=== PATIENT | male | born 1975 | race Caucasian/White ===

== ENCOUNTER 2016-11-03 17:03 | Emergency (ER) | payer SELFPAY ==
--- NOTE | 2016-11-03 17:49 | ER Document Report ---
ED Substance Abuse / Acc. OD - General Chief Complaint: Alcohol Withdrawl Stated Complaint: MEDICAL CLEARENCE Time Seen by Provider: 11/03/16 17:28 Mode of Arrival: Ambulatory Information source: Patient Notes: This is a 41-year-old man brought into the emergency room by [facility]. Patient has a history of epilepsy since age 8. He also has a history of alcohol abuse and has been here multiple times in the emergency room under a different name. He is brought in for alcohol withdrawal. The patient apparently has a bed available on Saturday at the [facility] in [place]. They have requested that he is restarted on his Keppra for 2 days prior to transfer over to the [facility]. The patient states he did have a seizure yesterday. TRAVEL OUTSIDE OF THE [place] IN LAST 30 DAYS: No - HPI Patient complains to provider of: Alcohol abuse Onset: Just prior to arrival Onset/Duration: Gradual Quality of pain: No pain Severity: None Pain Level: Denies Situational problems related to: No: Daughter, Legal problems, Lost job, Parent , Recent , Recent divorce, School, Sexual orientation, Significant other, Son, Spouse, Work, Other Associated Symptoms: None Similar symptoms previously: Yes Recently seen / treated by doctor: Yes - Related Data Allergies/Adverse Reactions: No Known Allergies Allergy (Verified 11/03/16 17:06) Past Medical History - General Information source: Patient - Social History Smoking Status: Current Every Day Smoker Cigarette use (# per day): No Chew tobacco use (# tins/day): No Frequency of alcohol use: Heavy Drug Abuse: None Lives with: Alone Family History: Reviewed & Not Pertinent Patient has suicidal ideation: No Patient has homicidal ideation: No - Past Medical History Cardiac Medical History: Reports: None Pulmonary Medical History: Reports: None EENT Medical History: Reports: None Neurological Medical History: Reports: Hx Seizures Endocrine Medical History: Reports: None Renal/ Medical History: Reports: None. Denies: Hx Peritoneal Dialysis Malignancy Medical History: Reports None GI Medical History: Reports: None Musculoskeltal Medical History: Reports None Skin Medical History: Reports None Psychiatric Medical History: Reports: Hx Depression, Other - Alcohol abuse Traumatic Medical History: Reports: None Infectious Medical History: Reports: None Surgical Hx: Other - Noncontributory - Immunizations Hx Diphtheria, Pertussis, Tetanus Vaccination: Yes Review of Systems - Review of Systems Constitutional: denies: Chills, Fever EENT: No symptoms reported Cardiovascular: No symptoms reported Respiratory: No symptoms reported Gastrointestinal: No symptoms reported Genitourinary: No symptoms reported Male Genitourinary: No symptoms reported Musculoskeletal: No symptoms reported Skin: No symptoms reported Hematologic/Lymphatic: No symptoms reported Neurological/Psychological: See HPI Physical Exam - Vital signs Vitals: Temp Pulse Resp BP Pulse Ox 98.1 F 109 H 16 153/98 H 94 11/03/16 17:06 11/03/16 17:06 11/03/16 17:06 11/03/16 17:06 11/03/16 17:06 Notes: GENERAL: 41-year-old man, alert oriented 3, alcohol on breath. He appears intoxicated. HEAD: Atraumatic, normocephalic. EYES: Pupils equal round and reactive to light, extraocular movements intact, sclera anicteric, conjunctiva are normal. ENT: TMs normal, nares patent, oropharynx clear without exudates. Moist mucous membranes. NECK: Normal range of motion, supple without lymphadenopathy or JVD. LUNGS: Breath sounds clear to auscultation bilaterally and equal. No wheezes rales or rhonchi. HEART: Regular rate and rhythm without murmurs, rubs or gallops. ABDOMEN: Soft, normoactive bowel sounds. No tenderness to palpation. No guarding, no rebound. No masses appreciated. EXTREMITIES: Normal range of motion, no pitting or edema. No clubbing or cyanosis. NEUROLOGICAL: Cranial nerves II through XII grossly intact. Normal speech, moving all extremities. PSYCH: Normal mood, normal affect. SKIN: Warm, Dry, normal turgor, no rashes or lesions noted. Course - Re-evaluation Re-evalutation: 11/03/16 20:00 Note: I had a long conversation with the [facility] personnel who accompanied the patient to the ER. I had a long conversation with the patient. The plan was to transfer the patient to [facility] for inpatient alcohol detox/dependence treatment. The [facility] was mandating that the patient be on Keppra for 2 days before they take him on Saturday. So in essence, they were asking us to hold him in the ER for 2 days until Saturday morning. After in-depth discussions above as well as discussions with the psychiatric assistant, we have agreed to watch the patient until Saturday. The patient was loaded with IV Keppra and he was given IV thiamine and folate. The patient was given Ativan for any type of withdrawal symptoms. His alcohol level is usually extremely high. The patient normally comes into the hospital with a very high alcohol level. And his tolerance is very high. The patient started requesting for his bag at 8 PM. We allowed him to get his bed because he is here voluntarily but researched it beforehand for any contraband. We did find a large bottle of beer and explained to him that we cannot allow him to have the beer in the room while he stays here. At that point, the patient is requesting to leave. He is speaking clearly and he appears to be mentating appropriately and he appears sober at this time. It is my clinical impression that he is sober at his current alcohol level. I do not believe his alcohol level was ever at 0 and he goes into acute withdrawals when it does go to 0. In any event, he is mentating appropriately and refusing to stay. My only other option, is to physically and chemically restrain him which I do not feel is necessary at this time. 11/03/16 20:14 I have spoken to Makayla from [facility] about the events above and she is willing to talk to the patient. If he is willing to stay, the patient will be allowed to stay voluntarily so that he can get his Keppra and Ativan for withdrawal until the hardware is ready to take him on Saturday. He is here voluntarily. I have explained to Makayla that if he voluntarily wishes to leave, he will be allowed to. - Vital Signs Vital signs: Temp Pulse Resp BP Pulse Ox 98.1 F 109 H 22 H 139/83 H 93 11/03/16 17:06 11/03/16 17:06 11/03/16 19:01 11/03/16 19:01 11/03/16 19:01 - Laboratory Result Diagrams: 11/03/16 18:30 11/03/16 18:30 Laboratory results interpreted by me: 11/03/16 11/03/16 11/03/16 18:30 18:30 18:55 WBC 3.6 L RDW 14.4 H Plt Count 126 L Seg Neutrophils % 38.0 L Monocytes % 18.5 H Absolute Neutrophils 1.4 L BUN 4 L AST 227 H ALT 158 H Total Protein 8.8 H Urine Blood SMALL H Salicylates < 1.0 L Acetaminophen < 10 L Serum Alcohol 351 H* Discharge - Discharge Clinical Impression: Alcohol abuse, Seizure disorder Condition: Stable Disposition: HOME, SELF-CARE Additional Instructions: Your prescription and start taking the Keppra tomorrow. He was given a loading dose of Keppra while you are in the ER this evening. Follow-up with [facility]. Prescriptions: Levetiracetam [Keppra 500 mg Tablet] 500 mg PO Q12 #60 tablet
[2016-11-03] MEDS ORDERED: LEVETIRACETAM 1000 MG/NACL-ISO 100 ML IV ONE (17:55)
[2016-11-03] MEDS ORDERED: THIAMINE HCL 100 MG in NORMAL SALINE 50 ML IV ONE (17:55)
[2016-11-03] MEDS ORDERED: FOLIC ACID 1 MG TABLET PO ONE (17:56)
--- NOTE | 2016-11-03 18:05 | ER Document Report ---
ED Psych Disorder / Suicide - General Mode of Arrival: Ambulatory TRAVEL OUTSIDE OF THE U.S. IN LAST 30 DAYS: No <FRANKY DEY - Last Filed: 11/03/16 17:54> <BLANCA BOWERS - Last Filed: 11/04/16 15:31> - General Chief Complaint: Alcohol Withdrawl Stated Complaint: MEDICAL CLEARENCE Time Seen by Provider: 11/03/16 17:28 - HPI Notes: pt ambulatory to er with need for medical clearance for alcohol withdrawal. pt seen here recently . pt with seizures from [place] with in the past. pt needs to have keppra started and if we are able to keep him until saturday he will possibly have a bed available at the [facility]. 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 Patient has been seen multiple times this week attempting to get medical clearance for [facility]. Patient had previously been using his mother's maiden name, and the Keppra prescription provided yesterday by attending physician is in the incorrect name. Patient has been trying to get help and has been active in the process. Patient call multiple times today attempting to get all the information [facility] needed for placement (he was medically cleared more than 24 hrs previous). Patient arrives to [facility] ED with W[facility] over 300 every visit. If patient is released, the process of repeated ED visits (sometimes 2 in a day) will continue. Patient is starting to verbalize depression and passive SI at the difficulties. There is concern the patient will act on these thoughts if he continues to make the same circular progress of clearance and then no placement only to get intoxicated again. [facility] has confirmed that Dr. Escudero will accept the patient after he has had Keppra for 2 days and [facility] mobile rattan worker confirms the transportation will be provided for patient to [facility]. Patient verbalized concern for cost of prescription; Keppra is on the $ 10 list for a 60 days prescription at [facility], additionally patient can use coupons available online such as by [employer]. (FRANKY DEY) Met with Patient who reported he continues to feel shaky and like he is withdrawal, though when I initially entered the room, Patient was not shaking or exhibiting any signs of alcohol withdrawal. He was lying comfortably in bed with his eyes closed and easily awakened to his name being closed. When asked how he was doing, he began shaking, almost tremulously. I asked him if he still was wanting to go to the [facility] and he indicated he did, but reportedly he lost his bed because he needed to be on Keppra for two days before admission. Hand off notes indicated Dr. Addison confirmed the Patient had a bed on Saturday should he receive 2 days worth of treatment. Patient is otherwise considered psychiatrically clear for discharge. (BLANCA BOWERS) - Related Data Allergies/Adverse Reactions: No Known Allergies Allergy (Verified 11/03/16 17:06) Past Medical History - General Information source: Patient - Social History Smoking Status: Current Every Day Smoker Chew tobacco use (# tins/day): No Frequency of alcohol use: Heavy Drug Abuse: None Family History: Reviewed & Not Pertinent Patient has suicidal ideation: No Patient has homicidal ideation: No Neurological Medical History: Reports: Hx Seizures Renal/ Medical History: Denies: Hx Peritoneal Dialysis Psychiatric Medical History: Reports: Hx Depression - Immunizations Hx Diphtheria, Pertussis, Tetanus Vaccination: Yes <FRANKY DEY - Last Filed: 11/03/16 17:54> Course - Laboratory Result Diagrams: 11/03/16 18:30 11/03/16 18:30 <BLANCA BOWERS - Last Filed: 11/04/16 15:31> - Vital Signs Vital signs: Temp Pulse Resp BP Pulse Ox 98.6 F 85 18 141/94 H 95 11/04/16 09:56 11/04/16 09:56 11/04/16 09:56 11/04/16 09:56 11/04/16 09:56 - Laboratory Laboratory results interpreted by me: 11/03/16 11/03/16 11/03/16 18:30 18:30 18:55 WBC 3.6 L RDW 14.4 H Plt Count 126 L Seg Neutrophils % 38.0 L Monocytes % 18.5 H Absolute Neutrophils 1.4 L BUN 4 L AST 227 H ALT 158 H Total Protein 8.8 H Urine Blood SMALL H Salicylates < 1.0 L Acetaminophen < 10 L Serum Alcohol 351 H* Discharge <FRANKY DEY - Last Filed: 11/03/16 17:54> <BLANCA BOWERS - Last Filed: 11/04/16 15:31> - Discharge Clinical Impression: Alcohol abuse, Seizure disorder Condition: Stable Disposition: OTHER Additional Instructions: Your prescription and start taking the Keppra tomorrow. He was given a loading dose of Keppra while you are in the ER this evening. Follow-up with [facility]. Prescriptions: Levetiracetam [Keppra 500 mg Tablet] 500 mg PO Q12 #60 tablet
[2016-11-03] MEDS ORDERED: THIAMINE HCL INJ 200 MG/2 ML VIAL ONE (18:38)
[2016-11-03 18:42] LABS: HEMATOCRIT 49.6 % (37.9-51.0); HEMOGLOBIN 16.5 g/dL (13.5-17.0); HGB HCT DIFFERENCE -0.1; RED BLOOD COUNT 5.36 10^6/uL (4.35-5.55); WHITE BLOOD COUNT 3.6 10^3/uL (4.0-10.5)
[2016-11-03 18:43] LABS: ABSOLUTE BASOPHILS # (AUTO) 0.1 10^3/uL (0.0-0.2); ABSOLUTE EOSINOPHILS # (AUTO) 0.1 10^3/uL (0.0-0.6); ABSOLUTE LYMPHOCYTES (AUTO) 1.4 10^3/uL (0.5-4.7); ABSOLUTE MONOCYTES (AUTO) 0.7 10^3/uL (0.1-1.4); ABSOLUTE NEUT (AUTO) 1.4 10^3/uL (1.7-8.2); BASOPHILS % (AUTO) 1.6 % (0-2); EOSINOPHILS % (AUTO) 3.7 % (0-6); LYMPHOCYTES % (AUTO) 38.2 % (13-45); MEAN CORPUSCULAR HEMOGLOBIN 30.9 pg (27.0-33.4); MEAN CORPUSCULAR HGB CONC 33.4 g/dL (32.0-36.0); MEAN CORPUSCULAR VOLUME 93 fl (80-97); MONOCYTES % (AUTO) 18.5 % (3-13); RED CELL DISTRIBUTION WIDTH 14.4 % (11.5-14.0)
[2016-11-03] MEDS: LORAZEPAM 1 MG TABLET PO PRN (18:49)
[2016-11-03 19:02] LABS: ALANINE AMINOTRANSFERASE 158 U/L (21-72); ALBUMIN 4.7 g/dL (3.5-5.0); ALKALINE PHOSPHATASE 94 U/L (38-126); ANION GAP 16 (5-19); ASPARTATE AMINO TRANSFERASE 227 U/L (17-59); BILIRUBIN,DIRECT 0.4 mg/dL (0.0-0.4); BILIRUBIN,TOTAL 0.6 mg/dL (0.2-1.3); BLOOD UREA NITROGEN 4 mg/dL (7-20); CALCIUM 8.6 mg/dL (8.4-10.2); CARBON DIOXIDE 23 mmol/L (22-30); CHLORIDE 104 mmol/L (98-107); GLUCOSE 95 mg/dL (75-110); POTASSIUM 4.3 mmol/L (3.6-5.0); SODIUM 143.4 mmol/L (137-145); TOTAL PROTEIN 8.8 g/dL (6.3-8.2)
[2016-11-03 19:14] LABS: ALCOHOL 351 mg/dL (NONE DETECTED)
[2016-11-03 19:27] LABS: APPEARANCE,URINE CLEAR; BILIRUBIN,URINE NEGATIVE (NEGATIVE); GLUCOSE, URINE NEGATIVE (NEGATIVE); KETONES,URINE NEGATIVE (NEGATIVE); LEUKOCYTE ESTERASE,URINE NEGATIVE (NEGATIVE); NITRITE,URINE NEGATIVE (NEGATIVE); PROTEIN,URINE NEGATIVE (NEGATIVE); URINE SPECIFIC GRAVITY 1.005; UROBILINOGEN,URINE NEGATIVE mg/dL (<2.0)
[2016-11-03 19:45] LABS: URINE BARBITURATES SCREEN NEGATIVE; URINE METHADONE SCREEN NEGATIVE; URINE OPIATES LOW NEGATIVE; URINE PHENCYCLIDINE SCREEN NEGATIVE
[2016-11-04] MEDS ORDERED: LORAZEPAM INJ 2 MG/1 ML VIAL IV ONE (06:56)
--- NOTE | 2016-11-04 08:04 | EKG REPORT ---
SEVERITY:- ABNORMAL ECG - SINUS RHYTHM LEFT VENTRICULAR HYPERTROPHY : Confirmed by: John Kelly MD 04-Nov-2016 08:03:50
--- NOTE | 2016-11-04 09:22 | ER Document Report ---
Doctor's Note Notes: 11/04/16 09:22 As the rounding physician for our psychiatric patients, I have reviewed the chart, vitals, lab work. Patient has been examined and noted to be slightly tremerous , pt given ativan. will hold for detox center transfer tomorrow morning
[2016-11-04] MEDS: LEVETIRACETAM 500 MG TABLET PO SCH ×2 (09:45→21:50)
[2016-11-04] MEDS: LORAZEPAM 1 MG TABLET PO PRN ×3 (09:56→18:33)
[2016-11-04] MEDS ORDERED: DIAZEPAM 5 MG TABLET ONE (21:51)
[2016-11-05] MEDS ORDERED: LORAZEPAM INJ 2 MG/1 ML VIAL IV ONE (06:52)
[2016-11-05] MEDS ORDERED: LORAZEPAM 1 MG TABLET PO PRN (06:52)
--- NOTE | 2016-11-05 09:20 | ER Document Report ---
Doctor's Note Notes: 11/05/16 09:20 As the rounding physician for our psychiatric patients, I have reviewed the chart, vitals, lab work. Patient has been examined and noted to be resting comfortably, no issues noted . I am awaiting placement for detox
[2016-11-05] MEDS: LEVETIRACETAM 500 MG TABLET PO SCH (09:58)
[2016-11-05 12:10] VITALS: BP 160/98
== END 2016-11-05 12:10 | disposition other institution (70) ==
LOC: ER 17:03
DX: F10.239 Alcohol dependence with withdrawal, unspecified (principal); G40.909 Epilepsy, unspecified, not intractable, without status epilepticus; F17.200 Nicotine dependence, unspecified, uncomplicated
CPT/HCPCS: 93005; 99285; 96374; 36415; 80307 ×4; 85025; 80053; 81001; 93010; J2060 ×2; J3411; J1953

== ENCOUNTER 2017-07-27 21:06 | Emergency (ER) | payer SELFPAY ==
[2017-07-27] MEDS ORDERED: LEVETIRACETAM 500 MG TABLET PO ONE (21:33)
[2017-07-27] MEDS ORDERED: NORMAL SALINE 1000 ML 1,000 ML IV ONE ×2 (21:33→21:34)
[2017-07-27] MEDS ORDERED: DIAZEPAM INJ 10 MG/2 ML DISP.SYRIN IV ONE (21:34)
--- NOTE | 2017-07-27 21:42 | ER Document Report ---
ED General - General Chief Complaint: Probable Seizure Stated Complaint: POSSIBLE SEIZURE Time Seen by Provider: 07/27/17 21:08 Notes: Patient is a 42-year-old male with a past medical history of alcohol abuse, currently tried to taper himself off of alcohol and a history of epilepsy currently off all antiepileptic medications who presents after having a witnessed seizure. Patient was seen by his girlfriend to have a 1-2 minute episode of a generalized tonic-clonic seizure. Upon EMS arrival he was post ictal. At time of arrival to the emergency department patient is coming back to his baseline, admits that he has been off of his Keppra for at least the past 2 months due to running out of medication. He states his last seizure was several months ago under the same circumstances. Admits that he typically has seizures whenever he comes off his medication. He notes that when he is on Keppra his seizures are well-controlled. At this time he denies any complaints other than mild nausea which she reports that he has had for the past several days as he has been trying to taper off of alcohol drinking less beer each day. He does however state today that he is worried he got "behind" on the amount of alcohol intake and that this may have been a trigger for his seizure today. He does not have a primary care doctor or neurologist. TRAVEL OUTSIDE OF THE [place] IN LAST 30 DAYS: No - Related Data Allergies/Adverse Reactions: No Known Allergies Allergy (Verified 11/03/16 17:06) Past Medical History - General Information source: Patient - Social History Smoking Status: Current Every Day Smoker Chew tobacco use (# tins/day): No Frequency of alcohol use: Heavy Drug Abuse: None Lives with: Spouse/Significant other Family History: Reviewed & Not Pertinent Patient has suicidal ideation: No Patient has homicidal ideation: No Neurological Medical History: Reports: Hx Seizures Renal/ Medical History: Denies: Hx Peritoneal Dialysis Psychiatric Medical History: Reports: Hx Depression - Immunizations Hx Diphtheria, Pertussis, Tetanus Vaccination: Yes Review of Systems - Review of Systems Notes: Constitutional: Negative for fever. HENT: Negative for sore throat. Eyes: Negative for visual changes. Cardiovascular: Negative for chest pain. Respiratory: Negative for shortness of breath. Gastrointestinal: Negative for abdominal pain, positive for vomiting Genitourinary: Negative for dysuria. Musculoskeletal: Negative for back pain. Skin: Negative for rash. Neurological: Positive for seizure 10 point ROS negative except as marked above and in HPI. Physical Exam - Vital signs Vitals: Temp 98.3 F 07/27/17 21:09 Interpretation: Normal Notes: PHYSICAL EXAMINATION: GENERAL: Well-appearing, well-nourished and in no acute distress. HEAD: Atraumatic, normocephalic. EYES: Pupils equal round and reactive to light, extraocular movements intact, sclera anicteric, conjunctiva are normal. ENT: nares patent, oropharynx clear without exudates. Moderately dry mucous membranes. NECK: Normal range of motion, supple without lymphadenopathy LUNGS: Breath sounds clear to auscultation bilaterally and equal. No wheezes rales or rhonchi. HEART: Regular rate and rhythm without murmurs ABDOMEN: Soft, nontender, normoactive bowel sounds. No guarding, no rebound. No masses appreciated. EXTREMITIES: Normal range of motion, no pitting or edema. No cyanosis. NEUROLOGICAL: Face symmetric. Tongue protrudes midline. Extraocular motions intact. Pupils are 2 mm and equally reactive. Normal speech, normal gait. 5 out of 5 strength in both the distal and proximal upper and lower extremities bilaterally. Sensation is grossly intact throughout. Finger to nose testing normal. Pronator drift normal. PSYCH: Normal mood, normal affect. SKIN: Warm, Dry, normal turgor, no rashes or lesions noted. Course - Re-evaluation Re-evalutation: 07/27/17 21:37 Presentation of well-appearing patient after having a seizure. Patient has a known history of seizures. He has stopped taking his Keppra on his own approximately 2 months ago. However also notes that he is trying to wean himself off alcohol and "got behind" and drinking beer today to slowly taper himself down and feels that this may also alternatively have been the cause of his seizure. However he is not currently demonstrating overt signs of withdrawal. The patient has returned to baseline without intervention. No focal neurologic deficits. No infectious symptoms, vital sign abnormalities, or evidence of trauma. A basic metabolic was obtained to ensure that the patient had not become significantly dehydrated given his report intermittent periods of vomiting while tapering off alcohol and is noted to be normal. I have restarted the patient on Keppra and have instructed him that he needs to take it as prescribed. At this time will discharge with return precautions and follow-up recommendations. Verbal discharge instructions given a the bedside and opportunity for questions given. Medication warnings reviewed. Patient is in agreement with this plan and has verbalized understanding of return precautions and the need for primary care follow-up in the next 24-72 hours. - Vital Signs Vital signs: Temp Pulse Resp BP Pulse Ox 98.3 F 07/27/17 21:09 Discharge - Discharge Clinical Impression: Seizure disorder Alcohol withdrawal Qualifiers: Complication of substance-induced condition: uncomplicated Qualified Code(s): F10.230 - Alcohol dependence with withdrawal, uncomplicated Condition: Good Disposition: HOME, SELF-CARE Additional Instructions: Today you had a seizure. It is very important that you do not engage in any activities that could result in severe injury should you have a seizure. Specifically, do not drive a vehicle, go into a body of water, take a bath, climb ladders, or operate any heavy machinery until you have been cleared by your neurologist. Please return to the ED immediately if you have multiple seizures close together, develop a severe headache, weakness, numbness, difficulty speaking, have a seizure in which you do not return to normal within 1 hour of the seizure, or have any other symptoms that are concerning to you. Prescriptions: Levetiracetam [Keppra 500 mg Tablet] 500 mg PO Q12 #60 tablet
[2017-07-27 22:16] LABS: ANION GAP 11 (5-19); BLOOD UREA NITROGEN 7 mg/dL (7-20); CALCIUM 9.6 mg/dL (8.4-10.2); CARBON DIOXIDE 26 mmol/L (22-30); CHLORIDE 100 mmol/L (98-107); GLUCOSE 142 mg/dL (75-110); POTASSIUM 3.9 mmol/L (3.6-5.0); SODIUM 137.2 mmol/L (137-145)
[2017-07-27 23:11] VITALS: BP 145/92
== END 2017-07-27 23:20 | disposition home or self-care (01) ==
LOC: ER 21:06
DX: G40.909 Epilepsy, unspecified, not intractable, without status epilepticus (principal); T42.6X6A Underdosing of other antiepileptic and sedative-hypnotic drugs, initial encounter; Z91.128 Patient's intentional underdosing of medication regimen for other reason; Z91.14 Patient's other noncompliance with medication regimen; F10.230 Alcohol dependence with withdrawal, uncomplicated; R11.2 Nausea with vomiting, unspecified; F17.200 Nicotine dependence, unspecified, uncomplicated
CPT/HCPCS: 99284; 96361; 96374; 36415; 80048; J3360; J7030

== ENCOUNTER 2017-08-13 10:43 | Emergency (ER) | payer SELFPAY ==
--- NOTE | 2017-08-13 12:02 | RADIOLOGY REPORT (SQ) ---
EXAM DESCRIPTION: CT HEAD WITHOUT COMPLETED DATE/TIME: 08/13/2017 11:28 am REASON FOR STUDY: fall, possible seizure , head neck injury COMPARISON: CT brain 07/08/2006 CT cervical spine same date TECHNIQUE: Axial images acquired through the brain without intravenous contrast. Images reviewed wi th bone, brain and subdural windows. Additional sagittal and coronal reconstructions were generated. Images stored on PACS. All CT scanners at this facility use dose modulation, iterative reconstruction, and/or weight based d osing when appropriate to reduce radiation dose to as low as reasonably achievable (ALARA). [facility]: Dose Right [facility]: CareDose [facility]: Dose Right [facility]: Teradose 4D [facility]: Hair Scynce RADIATION DOSE: CT Rad equipment meets quality standard of care and radiation dose reduction techniq ues were employed. CTDIvol: 53.2 mGy. DLP: 964 mGy-cm. mGy. LIMITATIONS: None. FINDINGS: VENTRICLES: Normal size and contour. CEREBRUM: No masses. No hemorrhage. No midline shift. No evidence for acute infarction. Normal gra y/white matter differentiation. No areas of low density in the white matter. CEREBELLUM: No masses. No hemorrhage. No alteration of density. No evidence for acute infarction. EXTRAAXIAL SPACES: No fluid collections. No masses. ORBITS AND GLOBE: No intra- or extraconal masses. Normal contour of globe without masses. CALVARIUM: No fracture. PARANASAL SINUSES: Circumferential right maxillary sinus mucous membrane thickening. SOFT TISSUES: No mass or hematoma. OTHER: No other significant finding. IMPRESSION: NORMAL BRAIN CT WITHOUT CONTRAST. EVIDENCE OF ACUTE STROKE: NO. COMMENT: Quality ID # [id number]: Final reports with documentation of one or more dose reduction techniques (e.g., Automated exposure control, adjustment of the mA and/or kV according to patient size, use of iterative reconstruction technique) TECHNICAL DOCUMENTATION: JOB ID: [id number] [employer]- All Rights Reserved Reading location - IP/workstation name: [email or web address]
--- NOTE | 2017-08-13 12:05 | RADIOLOGY REPORT (SQ) ---
EXAM DESCRIPTION: CT CERVICAL SPINE WITHOUT COMPLETED DATE/TIME: 08/13/2017 11:28 am REASON FOR STUDY: fall, possible seizure , head neck injury COMPARISON: None. TECHNIQUE: Axial images acquired through the cervical spine without intravenous contrast. Images re viewed with lung, soft tissue and bone windows. Reconstructed coronal and sagittal MPR images review ed. Images stored on PACS. All CT scanners at this facility use dose modulation, iterative reconstruction, and/or weight based d osing when appropriate to reduce radiation dose to as low as reasonably achievable (ALARA). [facility]: Dose Right [facility]: CareDose [facility]: Dose Right [facility]: Teradose 4D [facility]: FamilySkyline RADIATION DOSE: CT Rad equipment meets quality standard of care and radiation dose reduction techniq ues were employed. CTDIvol: 18.5 mGy. DLP: 452 mGy-cm. mGy. LIMITATIONS: None. FINDINGS: ALIGNMENT: Anatomic. MINERALIZATION: Normal. VERTEBRAL BODIES: No fractures or dislocation. DISCS: Minimal posterior disc bulging at C4-5 without central or foraminal encroachment. FACETS, LATERAL MASSES, POSTERIOR ELEMENTS: No fractures. No dislocation. No acute findings. HARDWARE: None in the spine. VISUALIZED RIBS: No fractures. LUNG APICES AND SOFT TISSUES: Advanced changes of obstructive lung disease, with bulla or blebs at th e right lung apex OTHER: No other significant finding. IMPRESSION: No acute fracture or malalignment of the cervical spine. Large right apical bulla or bleb TECHNICAL DOCUMENTATION: JOB ID: [id number] Quality ID # [id number]: Final reports with documentation of one or more dose reduction techniques (e.g., Au tomated exposure control, adjustment of the mA and/or kV according to patient size, use of iterative reconstruction technique) 2010 [employer]- All Rights Reserved Reading location - IP/workstation name: [email or web address]
--- NOTE | 2017-08-13 12:16 | ER Document Report ---
ED General - General Chief Complaint: Probable Seizure Stated Complaint: POSSIBLE SEIZURE Time Seen by Provider: 08/13/17 10:44 Mode of Arrival: Medic Information source: Patient Notes: 42-year-old male chronic alcoholic who is supposed to have his first court appointment today presented after a seizure-like episode. Patient notes this happens often he denies any fevers or chills notes he has been drinking and had 2 margaritas today. Patient notes he may have fallen and struck his head, he denies any other complaints states he feels fine TRAVEL OUTSIDE OF THE [place] IN LAST 30 DAYS: No - HPI Onset: Just prior to arrival Onset/Duration: Sudden Quality of pain: Achy Severity: Mild Pain Level: 1 Associated symptoms: Other Exacerbated by: Denies Relieved by: Denies Similar symptoms previously: No Recently seen / treated by doctor: No - Related Data Allergies/Adverse Reactions: No Known Allergies Allergy (Verified 08/13/17 10:47) Past Medical History - Social History Smoking Status: Never Smoker Cigarette use (# per day): No Chew tobacco use (# tins/day): No Smoking Education Provided: No Frequency of alcohol use: Heavy Family History: Reviewed & Not Pertinent Patient has suicidal ideation: No Patient has homicidal ideation: No Neurological Medical History: Reports: Hx Seizures Renal/ Medical History: Denies: Hx Peritoneal Dialysis Psychiatric Medical History: Reports: Hx Depression - Immunizations Hx Diphtheria, Pertussis, Tetanus Vaccination: Yes Review of Systems - Review of Systems Notes: REVIEW OF SYSTEMS: CONSTITUTIONAL : Denies fever, chills, or sweats. Denies recent illness. EENT: Denies eye, ear, throat, or mouth pain or symptoms. Denies nasal or sinus congestion or discharge. Denies throat, tongue, or mouth swelling or difficulty swallowing. CARDIOVASCULAR: Denies chest pain. Denies palpitations or racing or irregular heart beat. Denies ankle edema. RESPIRATORY: Denies cough, cold, or chest congestion. Denies shortness of breath, difficulty breathing, or wheezing. GASTROINTESTINAL: Denies abdominal pain or distention. Denies nausea, vomiting , or diarrhea. Denies blood in vomitus, stools, or per rectum. Denies black, tarry stools. Denies constipation. GENITOURINARY: Denies difficulty urinating, painful urination, burning, frequency, blood in urine, or discharge. MUSCULOSKELETAL: Denies back or neck pain or stiffness. Denies joint pain or swelling. SKIN: Denies rash, lesions or sores. HEMATOLOGIC : Denies easy bruising or bleeding. LYMPHATIC: Denies swollen, enlarged glands. NEUROLOGICAL: admits to possible seizure PSYCHIATRIC: Denies anxiety or stress. Denies depression, suicidal ideation, or homicidal ideation. ALL OTHER SYSTEMS REVIEWED AND NEGATIVE. Dictation was performed using [employer] voice recognition software PHYSICAL EXAMINATION: GENERAL: Well-appearing, well-nourished and in no acute distress. HEAD: mild tenderness on the occipital . EYES: Pupils equal round and reactive to light, extraocular movements intact, sclera anicteric, conjunctiva are normal. ENT: Nares patent, oropharynx clear without exudates. Moist mucous membranes. NECK: Normal range of motion, supple without lymphadenopathy LUNGS: Breath sounds clear to auscultation bilaterally and equal. No wheezes rales or rhonchi. HEART: Regular rate and rhythm without murmurs ABDOMEN: Soft, nontender, nondistended abdomen. No guarding, no rebound. No masses appreciated. Musculoskeletal: Normal range of motion, no pitting or edema. No cyanosis. NEUROLOGICAL: Cranial nerves grossly intact. Normal speech, normal gait. Normal sensory, motor exams PSYCH: Normal mood, normal affect. SKIN: Warm, Dry, normal turgor, no rashes or lesions noted. Physical Exam - Vital signs Vitals: Temp Pulse Resp BP Pulse Ox 98.4 F 100 20 151/102 H 98 08/13/17 10:51 08/13/17 10:51 08/13/17 10:51 08/13/17 10:51 08/13/17 10:51 Course - Re-evaluation Re-evalutation: 08/13/17 12:20 pt is clinically sober, chronic alcoholic who denies any new symptoms at this time pt immediately wanted ot contact his gf to leave. pt otherwise stable and able ot ambulate After performing a Medical Screening Examination, I estimate there is LOW risk for INTRACRANIAL HEMORRHAGE, ISCHEMIC CVA, MALIGNANT DYSRHYTHMIA, ACUTE CORONARY SYNDROME, MENINGITIS, PULMONARY EMBOLISM, or SEPSIS thus I consider the discharge disposition reasonable. I have reevaluated this patient multiple times and no significant life threatening changes are noted. The patient and I have discussed the diagnosis and risks, and we agree with discharging home with close follow-up with the understanding that symptoms and presentations can change. We also discussed returning to the Emergency Department immediately if new or worsening symptoms occur. We have discussed the symptoms which are most concerning (e.g., changing or worsening pain, weakness, vomiting, fever) that necessitate immediate return. - Vital Signs Vital signs: Temp Pulse Resp BP Pulse Ox 98.4 F 100 20 151/102 H 98 08/13/17 10:51 08/13/17 10:51 08/13/17 10:51 08/13/17 10:51 08/13/17 10:51 - Diagnostic Test Radiology reviewed: Image reviewed - ct head and neck performed, no contrast. bullae noted on lung, otherwise n oacute abnormality, Reports reviewed Discharge - Discharge Clinical Impression: Alcohol abuse, Seizure disorder Condition: Stable Disposition: HOME, SELF-CARE Additional Instructions: You may not drive until cleared by neurology Referrals: ANNA HERNANDEZ MD [EMERITUS] - Follow up as needed
[2017-08-13 12:39] VITALS: BP 122/103
== END 2017-08-13 12:39 | disposition home or self-care (01) ==
LOC: ER 10:43
DX: G40.909 Epilepsy, unspecified, not intractable, without status epilepticus (principal); F10.10 Alcohol abuse, uncomplicated
CPT/HCPCS: 70450; 72125; 99284

== ENCOUNTER 2017-08-26 08:56 | Emergency (ER) | payer SELFPAY ==
[2017-08-26] MEDS ORDERED: LEVETIRACETAM 500 MG TABLET PO ONE (09:51)
--- NOTE | 2017-08-26 09:53 | ER Document Report ---
ED General - General Chief Complaint: Probable Seizure Stated Complaint: POSSIBLE SEIZURE Time Seen by Provider: 08/26/17 09:31 Mode of Arrival: Medic Information source: Patient Notes: 42-year-old chronic alcoholic history of seizures presents after a seizure last night and today. It is noted that the patient had a seizure last week when he was supposed to go to court. Patient notes that he has not taken his Keppra and a long period of time, he is noted to have drank last night. TRAVEL OUTSIDE OF THE [place] IN LAST 30 DAYS: No - HPI Onset: Just prior to arrival Onset/Duration: Sudden Quality of pain: Achy Severity: Mild Pain Level: 1 Associated symptoms: Other Exacerbated by: Denies Relieved by: Denies Similar symptoms previously: Yes Recently seen / treated by doctor: Yes - Related Data Allergies/Adverse Reactions: No Known Allergies Allergy (Verified 08/26/17 09:33) Past Medical History - Social History Smoking Status: Never Smoker Cigarette use (# per day): No Chew tobacco use (# tins/day): No Smoking Education Provided: No Frequency of alcohol use: None Drug Abuse: None Family History: Reviewed & Not Pertinent Patient has suicidal ideation: No Patient has homicidal ideation: No Neurological Medical History: Reports: Hx Seizures Renal/ Medical History: Denies: Hx Peritoneal Dialysis Psychiatric Medical History: Reports: Hx Depression - Immunizations Hx Diphtheria, Pertussis, Tetanus Vaccination: Yes Review of Systems - Review of Systems Notes: REVIEW OF SYSTEMS: CONSTITUTIONAL : Denies fever, chills, or sweats. Denies recent illness. EENT: Denies eye, ear, throat, or mouth pain or symptoms. Denies nasal or sinus congestion or discharge. Denies throat, tongue, or mouth swelling or difficulty swallowing. CARDIOVASCULAR: Denies chest pain. Denies palpitations or racing or irregular heart beat. Denies ankle edema. RESPIRATORY: Denies cough, cold, or chest congestion. Denies shortness of breath, difficulty breathing, or wheezing. GASTROINTESTINAL: Denies abdominal pain or distention. Denies nausea, vomiting , or diarrhea. Denies blood in vomitus, stools, or per rectum. Denies black, tarry stools. Denies constipation. GENITOURINARY: Denies difficulty urinating, painful urination, burning, frequency, blood in urine, or discharge. FEMALE GENITOURINARY: Denies vaginal bleeding, heavy or abnormal periods, irregular periods. Denies vaginal discharge or odor. MUSCULOSKELETAL: Denies back or neck pain or stiffness. Denies joint pain or swelling. SKIN: Denies rash, lesions or sores. HEMATOLOGIC : Denies easy bruising or bleeding. LYMPHATIC: Denies swollen, enlarged glands. NEUROLOGICAL: Admits to seizure-like activity PSYCHIATRIC: Denies anxiety or stress. Denies depression, suicidal ideation, or homicidal ideation. ALL OTHER SYSTEMS REVIEWED AND NEGATIVE. PHYSICAL EXAMINATION: GENERAL: Well-appearing, well-nourished and in no acute distress. Patient intermittently has spasms of his body which are not seizures HEAD: Atraumatic, normocephalic. EYES: Pupils equal round and reactive to light, extraocular movements intact, conjunctiva are normal. ENT: Nares patent, oropharynx clear without exudates. Moist mucous membranes. NECK: Normal range of motion, supple without lymphadenopathy LUNGS: Breath sounds clear to auscultation bilaterally and equal. No wheezes rales or rhonchi. HEART: Regular rate and rhythm without murmurs ABDOMEN: Soft, nontender, nondistended abdomen. No guarding, no rebound. No masses appreciated. Female : deferred Musculoskeletal: Normal range of motion, no pitting or edema. No cyanosis. NEUROLOGICAL: Cranial nerves grossly intact. Normal speech, normal gait. Normal sensory, motor exams PSYCH: Normal mood, normal affect. SKIN: Warm, Dry, normal turgor, no rashes or lesions noted. Dictation was performed using [employer] voice recognition software Physical Exam - Vital signs Vitals: Temp Pulse Resp BP Pulse Ox 98.0 F 96 20 150/96 H 95 08/26/17 09:02 08/26/17 09:02 08/26/17 09:02 08/26/17 09:02 08/26/17 09:02 Course - Re-evaluation Re-evalutation: 08/26/17 09:55 Patient overall is at his baseline, he is in no distress, I will give a loading dose of 2000 of Keppra. Patient overall appears medically stable the seizures are questionable if they are real or induced by the patient himself. Patient and promised that they will get the Keppra today he only takes 500 daily - Vital Signs Vital signs: Temp Pulse Resp BP Pulse Ox 98.0 F 96 20 150/96 H 95 08/26/17 09:02 08/26/17 09:02 08/26/17 09:02 08/26/17 09:02 08/26/17 09:02 - Laboratory Result Diagrams: 08/26/17 09:46 08/26/17 09:46 Laboratory results interpreted by me: 08/26/17 09:46 RDW 14.8 H Discharge - Discharge Clinical Impression: Alcohol abuse, Seizure disorder Condition: Stable Disposition: HOME, SELF-CARE Instructions: Seizure, Known Epileptic ([facility]) Additional Instructions: Please decreased your alcohol use, do not stop suddenly, you must take your Keppra as prescribed
[2017-08-26 10:00] LABS: HEMOGLOBIN 16.4 g/dL (13.5-17.0); MEAN CORPUSCULAR HEMOGLOBIN 31.4 pg (27.0-33.4); MEAN CORPUSCULAR HGB CONC 34.9 g/dL (32.0-36.0); MEAN CORPUSCULAR VOLUME 90 fl (80-97); PLATELET COUNT 201 10^3/uL (150-450); RED BLOOD COUNT 5.22 10^6/uL (4.35-5.55); RED CELL DISTRIBUTION WIDTH 14.8 % (11.5-14.0)
[2017-08-26 10:13] LABS: ALANINE AMINOTRANSFERASE 61 U/L (21-72); ALBUMIN 4.7 g/dL (3.5-5.0); ALKALINE PHOSPHATASE 75 U/L (38-126); ANION GAP 15 (5-19); ASPARTATE AMINO TRANSFERASE 56 U/L (17-59); BILIRUBIN,DIRECT 0.3 mg/dL (0.0-0.4); BILIRUBIN,TOTAL 0.4 mg/dL (0.2-1.3); BLOOD UREA NITROGEN 7 mg/dL (7-20); CALCIUM 9.1 mg/dL (8.4-10.2); CARBON DIOXIDE 25 mmol/L (22-30); CHLORIDE 102 mmol/L (98-107); GLUCOSE 109 mg/dL (75-110); POTASSIUM 4.4 mmol/L (3.6-5.0); SODIUM 142.4 mmol/L (137-145); TOTAL PROTEIN 7.8 g/dL (6.3-8.2)
[2017-08-26 10:35] LABS: ALCOHOL 368 mg/dL (NONE DETECTED)
[2017-08-26 10:44] LABS: ABSOLUTE MONOCYTES # (MANUAL) 0.4 10^3/uL (0.1-1.4); ABSOLUTE NEUTROPHILS# (MANUAL) 2.2 10^3/uL (1.7-8.2); BASOPHILS % (MANUAL) 3 % (0-2); EOSINOPHILS % (MANUAL) 19 % (0-6); LYMPHOCYTES % (MANUAL) 34 % (13-45); MONOCYTES % (MANUAL) 7 % (3-13); RBC MORPHOLOGY COMMENT NORMO-CYTIC/CHROMIC; SEGMENTED NEUTROPHILS % (MAN) 37 % (42-78); TOTAL CELLS COUNTED 100
[2017-08-26 11:04] LABS: PLATELET COMMENT ADEQUATE
[2017-08-26 11:30] VITALS: BP 130/91
== END 2017-08-26 11:37 | disposition home or self-care (01) ==
LOC: ER 08:56
DX: G40.909 Epilepsy, unspecified, not intractable, without status epilepticus (principal); F10.10 Alcohol abuse, uncomplicated
CPT/HCPCS: 36415; 80053; 80307; 83735; 85025; 99284

== ENCOUNTER 2017-10-09 06:28 | Emergency (ER) | payer SELFPAY ==
[2017-10-09 07:18] LABS: ABSOLUTE EOSINOPHILS # (AUTO) 0.1 10^3/uL (0.0-0.6); ABSOLUTE MONOCYTES (AUTO) 0.3 10^3/uL (0.1-1.4); BASOPHILS % (AUTO) 0.9 % (0-2); EOSINOPHILS % (AUTO) 1.1 % (0-6); HEMATOCRIT 44.7 % (37.9-51.0); HEMOGLOBIN 15.8 g/dL (13.5-17.0); LYMPHOCYTES % (AUTO) 37.3 % (13-45); MEAN CORPUSCULAR HEMOGLOBIN 31.5 pg (27.0-33.4); MEAN CORPUSCULAR HGB CONC 35.4 g/dL (32.0-36.0); MEAN CORPUSCULAR VOLUME 89 fl (80-97); MONOCYTES % (AUTO) 5.2 % (3-13); PLATELET COUNT 135 10^3/uL (150-450); RED BLOOD COUNT 5.03 10^6/uL (4.35-5.55); RED CELL DISTRIBUTION WIDTH 13.5 % (11.5-14.0); SEGMENTED NEUTROPHILS % (AUTO) 55.5 % (42-78); TOTAL CELLS COUNTED % (AUTO) 100 %; WHITE BLOOD COUNT 5.4 10^3/uL (4.0-10.5)
[2017-10-09] MEDS ORDERED: LORAZEPAM INJ 2 MG/1 ML VIAL IV ONE (07:20)
[2017-10-09] MEDS ORDERED: THIAMINE HCL 100 MG, FOLIC ACID 1 MG in NORMAL SALINE 250 ML IV ONE (07:21)
[2017-10-09] MEDS ORDERED: LEVETIRACETAM 500 MG TABLET PO ONE ×2 (07:49→16:44)
[2017-10-09 07:52] LABS: ALANINE AMINOTRANSFERASE 34 U/L (21-72); ALBUMIN 3.6 g/dL (3.5-5.0); ALKALINE PHOSPHATASE 59 U/L (38-126); ANION GAP 13 (5-19); ASPARTATE AMINO TRANSFERASE 41 U/L (17-59); BILIRUBIN,DIRECT 0.3 mg/dL (0.0-0.4); BILIRUBIN,TOTAL 0.3 mg/dL (0.2-1.3); BLOOD UREA NITROGEN 9 mg/dL (7-20); CALCIUM 8.1 mg/dL (8.4-10.2); CARBON DIOXIDE 25 mmol/L (22-30); CHLORIDE 106 mmol/L (98-107); GLUCOSE 145 mg/dL (75-110); POTASSIUM 3.6 mmol/L (3.6-5.0); SODIUM 144.4 mmol/L (137-145); TOTAL PROTEIN 6.8 g/dL (6.3-8.2)
[2017-10-09 08:12] LABS: ALCOHOL 454 mg/dL (NONE DETECTED)
--- NOTE | 2017-10-09 11:45 | RADIOLOGY REPORT (SQ) ---
EXAM DESCRIPTION: CT HEAD WITHOUT COMPLETED DATE/TIME: 10/09/2017 11:36 am REASON FOR STUDY: ams COMPARISON: CT brain 08/13/2017 TECHNIQUE: Axial images acquired through the brain without intravenous contrast. Images reviewed wi th bone, brain and subdural windows. Additional sagittal and coronal reconstructions were generated. Images stored on PACS. All CT scanners at this facility use dose modulation, iterative reconstruction, and/or weight based d osing when appropriate to reduce radiation dose to as low as reasonably achievable (ALARA). [facility]: Dose Right [facility]: CareDose [facility]: Dose Right [facility]: Teradose 4D [facility]: [employer] RADIATION DOSE: CT Rad equipment meets quality standard of care and radiation dose reduction techniq ues were employed. CTDIvol: 53.2 mGy. DLP: 1017 mGy-cm. mGy. LIMITATIONS: None. FINDINGS: VENTRICLES: Normal size and contour. CEREBRUM: No masses. No hemorrhage. No midline shift. No evidence for acute infarction. Normal gra y/white matter differentiation. No areas of low density in the white matter. CEREBELLUM: No masses. No hemorrhage. No alteration of density. No evidence for acute infarction. EXTRAAXIAL SPACES: No fluid collections. No masses. ORBITS AND GLOBE: No intra- or extraconal masses. Normal contour of globe without masses. CALVARIUM: No fracture. PARANASAL SINUSES: Mucus or serous retention cysts are present in the bilateral maxillary sinuses and bilateral sphenoid sinuses SOFT TISSUES: No mass or hematoma. OTHER: No other significant finding. IMPRESSION: NORMAL BRAIN CT WITHOUT CONTRAST. EVIDENCE OF ACUTE STROKE: NO. COMMENT: Quality ID # [id number]: Final reports with documentation of one or more dose reduction techniques (e.g., Automated exposure control, adjustment of the mA and/or kV according to patient size, use of iterative reconstruction technique) TECHNICAL DOCUMENTATION: JOB ID: [id number] [employer]- All Rights Reserved Reading location - IP/workstation name: [email or web address]
--- NOTE | 2017-10-09 13:42 | ER Document Report ---
ED General - General Chief Complaint: Seizure Stated Complaint: POSSIBLE SEIZURE Time Seen by Provider: 10/09/17 06:57 Mode of Arrival: Medic Information source: Patient Notes: 42-year-old male with seizure disorder, alcohol dependence, depression presents via EMS after a neighbor found him down outside of his home. EMS reports some generalized shaking per the neighbor. Upon arrival patient is alert and oriented 3. He does admit to noncompliance with his Keppra. He is unsure when he last took his Keppra. Patient states that he drank 2 beers this morning. He states that he does have a history of alcohol withdrawal and stated that he felt like he was going into withdrawal. Patient denies any recent illness, chest pain, shortness of breath, headache, nausea, vomiting, blurred vision, abdominal pain. Patient lives at home with his girlfriend. States that there has been some increased stress in the relationship. He denies any suicidal or homicidal ideation, visual or auditory hallucinations. He states that he does have his medications at home but "it is complicated". He has no good reason for not taking his Keppra. He denies any recent hospitalizations. TRAVEL OUTSIDE OF THE [place] IN LAST 30 DAYS: No - HPI Onset: Just prior to arrival Quality of pain: No pain Associated symptoms: None Exacerbated by: Denies Relieved by: Denies Similar symptoms previously: Yes Recently seen / treated by doctor: No - Related Data Allergies/Adverse Reactions: No Known Allergies Allergy (Verified 08/26/17 09:33) Past Medical History - General Information source: Patient, Emergency Med Personnel, [facility] Records - Social History Smoking Status: Current Every Day Smoker Cigarette use (# per day): Yes - 10 Chew tobacco use (# tins/day): No Smoking Education Provided: Yes - Patient counselled regarding cessation for 4 minutes Frequency of alcohol use: Heavy Drug Abuse: None Lives with: Spouse/Significant other Family History: Reviewed & Not Pertinent Patient has suicidal ideation: No Patient has homicidal ideation: No Neurological Medical History: Reports: Hx Seizures Renal/ Medical History: Denies: Hx Peritoneal Dialysis Psychiatric Medical History: Reports: Hx Depression - Immunizations Hx Diphtheria, Pertussis, Tetanus Vaccination: Yes Review of Systems - Review of Systems Constitutional: denies: Fever, Weakness EENT: denies: Blurred vision Cardiovascular: denies: Chest pain, Palpitations Respiratory: denies: Cough, Short of breath Gastrointestinal: denies: Abdominal pain, Nausea, Vomiting Genitourinary: denies: Dysuria, Flank pain Male Genitourinary: No symptoms reported Musculoskeletal: No symptoms reported Skin: denies: Rash Hematologic/Lymphatic: No symptoms reported Neurological/Psychological: Seizure. denies: Lost consciousness -: Yes All other systems reviewed and negative Physical Exam - Vital signs Vitals: Resp Pulse Ox 13 97 10/09/17 06:40 10/09/17 06:40 - Notes Notes: PHYSICAL EXAMINATION: GENERAL: Well-appearing, well-nourished and in no acute distress. GCS 15 HEAD: Atraumatic, normocephalic. EYES: Pupils equal round and reactive to light, extraocular movements intact, sclera anicteric, conjunctiva are normal. ENT: Nares patent, oropharynx clear without exudates. dry mucous membranes. No tongue laceration,No hemotympanum, NECK: Normal range of motion, supple without lymphadenopathy. No midline tenderness LUNGS: Breath sounds clear to auscultation bilaterally and equal. No wheezes rales or rhonchi. HEART: Regular rate and rhythm without murmurs ABDOMEN: Soft, nontender, nondistended abdomen. No guarding, no rebound. No masses appreciated. Musculoskeletal: Normal range of motion, no pitting or edema. No cyanosis. NEUROLOGICAL: Cranial nerves grossly intact. Normal speech, normal gait. Normal sensory, motor exams PSYCH: Normal mood, normal affect. SKIN: Warm, Dry, normal turgor, no rashes or lesions noted. Course - Re-evaluation Re-evalutation: 10/09/17 14:12 Laboratory 10/09/17 10/09/17 07:05 07:05 WBC 5.4 RBC 5.03 Hgb 15.8 Hct 44.7 MCV 89 MCH 31.5 MCHC 35.4 RDW 13.5 Plt Count 135 L Seg Neutrophils % 55.5 Lymphocytes % 37.3 Monocytes % 5.2 Eosinophils % 1.1 Basophils % 0.9 Absolute Neutrophils 3.0 Absolute Lymphocytes 2.0 Absolute Monocytes 0.3 Absolute Eosinophils 0.1 Absolute Basophils 0.0 Sodium 144.4 Potassium 3.6 Chloride 106 Carbon Dioxide 25 Anion Gap 13 BUN 9 Creatinine 0.62 Est GFR ( Amer) > 60 Est GFR (Non-Af Amer) > 60 Glucose 145 H Calcium 8.1 L Total Bilirubin 0.3 Direct Bilirubin 0.3 Neonat Total Bilirubin Not Reportable Neonat Direct Bilirubin Not Reportable Neonat Indirect Bili Not Reportable AST 41 ALT 34 Alkaline Phosphatase 59 Total Protein 6.8 Albumin 3.6 Serum Alcohol 454 H* 42-year-old male with seizure disorder, alcohol dependence, depression presents via EMS after a neighbor found him down outside of his home. EMS reports some generalized shaking per the neighbor. Upon arrival patient is alert and oriented 3. He does admit to noncompliance with his Keppra. He is unsure when he last took his Keppra. Patient states that he drank 2 beers this morning. He states that he does have a history of alcohol withdrawal and stated that he felt like he was going into withdrawal. Patient denies any recent illness, chest pain, shortness of breath, headache, nausea, vomiting, blurred vision, abdominal pain. Patient lives at home with his girlfriend. He states that he does have his medications at home but "it is complicated". He has no good reason for not taking his Keppra. He denies any recent hospitalizations. Patient was seen by myself upon arrival. Vital signs were reviewed. Patient is afebrile, normotensive and not hypoxic. Patient does not appear toxic or dehydrated. They are in no acute distress. Previous medical records and nursing notes reviewed. Significant findings include an alcohol level of 454. Patient has no evidence of seizure activity including urinary incontinence, tongue laceration, Upon arrival to the emergency department he did not appear post-ictal or even intoxicated. He was alert, awake, oriented and cooperative. patient received IV fluids, thiamine, folic acid, Ativan during his ED course. CT of the head was obtained and showed no acute process. Patient will need reevaluation once sober. Keppra was ordered but we will hold until patient is alert and awake. CBC is without leukocytosis or anemia. CMP shows no electrolyte abnormalities. Urine drug screen was negative. Patient was monitored in the emergency department for greater than 8 hours without seizure-like activity, vomiting. Patient shows no evidence of alcohol withdrawal at this time. He has no interest in detox at this time. 10/09/17 15:53 Patient reevaluated, he is somnolent but arousable. He wakes up to his name and then goes back to sleep. 10/09/17 15:54 10/09/17 15:54 10/09/17 16:56 Patient alert, awake. He ambulates without difficulty. He is tolerating water and food. Patient has a ride coming for him. Patient did receive Keppra prior to discharge. A prescription for Keppra was provided. Patient provided the opportunity to ask questions, and express concerns. Urged patient to consider detox. Discharge instructions discussed. Patient is agreeable with discharge home. Return indications explained and discussed with the patient who displays understanding. Patient encouraged to return to the emergency department immediately with any concerns. 10/09/17 20:42 - Vital Signs Vital signs: Temp Pulse Resp BP Pulse Ox 98.4 F 80 20 130/82 H 96 10/09/17 17:20 10/09/17 17:20 10/09/17 17:20 10/09/17 17:20 10/09/17 17:20 - Laboratory Result Diagrams: 10/09/17 07:05 10/09/17 07:05 Laboratory results interpreted by me: 10/09/17 10/09/17 07:05 07:05 Plt Count 135 L Glucose 145 H Calcium 8.1 L Serum Alcohol 454 H* - Diagnostic Test Radiology reviewed: Image reviewed, Reports reviewed - EKG Interpretation by Me EKG shows normal: Sinus rhythm - Transfer of Care Care transferred to following provider: Dr Benavidez Notes: 10/09/17 15:56 42-year-old male with history of seizures presents via EMS after neighbor found him altered. Patient alert and oriented 3 upon his arrival. No evidence of seizure activity including tongue laceration, urinary incontinence. GCS 15. Patient told me that he only drank 2 beers this morning and was concerned that he was going to go into alcohol withdrawal. EtOH-454 Will need sober reevaluation. CBC, CMP obtained mild thrombocytopenia no electrolyte abnormalities. Urine drug screen negative 10/09/17 15:58 Patient should be at an acceptable EtOH level at 1900. 10/09/17 16:20 Discharge - Discharge Clinical Impression: History of seizure, Alcohol abuse Alcohol intoxication Qualifiers: Complication of substance-induced condition: uncomplicated Qualified Code(s): F10.920 - Alcohol use, unspecified with intoxication, uncomplicated Condition: Good Disposition: HOME, SELF-CARE Instructions: Acute Alcohol Intoxication ([facility]), Anti-Convulsant Medication ([facility] ) Additional Instructions: please f/u with your pcp. please take your Keppra as prescribed. Please stop using alcohol as it can cause seizures. Prescriptions: Levetiracetam [Keppra 500 mg Tablet] 500 mg PO Q12 #60 tablet Forms: Smoking Cessation Education
[2017-10-09] MEDS ORDERED: RINGERS SOLUTION,LACTATED 1,000 ML IV ONE (14:12)
[2017-10-09 15:28] LABS: URINE AMPHETAMINES SCREEN NEGATIVE; URINE BARBITURATES SCREEN NEGATIVE; URINE BENZODIAZEPINES SCREEN NEGATIVE; URINE COCAINE SCREEN NEGATIVE; URINE MARIJUANA (THC) SCREEN NEGATIVE; URINE METHADONE SCREEN NEGATIVE; URINE PHENCYCLIDINE SCREEN NEGATIVE
[2017-10-09 17:25] VITALS: BP 130/82
== END 2017-10-09 17:26 | disposition home or self-care (01) ==
LOC: ER 06:28
DX: F10.229 Alcohol dependence with intoxication, unspecified (principal); G40.909 Epilepsy, unspecified, not intractable, without status epilepticus; F32.9 Major depressive disorder, single episode, unspecified; Z91.14 Patient's other noncompliance with medication regimen; F17.210 Nicotine dependence, cigarettes, uncomplicated
CPT/HCPCS: 36415; 80177; 80307 ×2; 85025; 80053; 70450; J3490; J2060; J3411; J7050

== ENCOUNTER 2017-11-29 18:12 | Emergency (ER) | payer SELFPAY ==
[2017-11-29] MEDS ORDERED: OXYCODONE-ACETAMINOPHEN 5-325 MG TABLET PO ONE (18:32)
--- NOTE | 2017-11-29 18:57 | RADIOLOGY REPORT (SQ) ---
EXAM DESCRIPTION: HAND LEFT 3 VIEWS COMPLETED DATE/TIME: 11/29/2017 6:43 pm REASON FOR STUDY: puncture wound between 1st/2nd digits COMPARISON: None. EXAM PARAMETERS: NUMBER OF VIEWS: Three views. TECHNIQUE: AP, lateral and oblique radiographic images acquired of the left hand. LIMITATIONS: None. FINDINGS: MINERALIZATION: Normal. BONES: No acute fracture or dislocation. No worrisome bone lesions. JOINTS: No effusions. SOFT TISSUES: No radiopaque foreign body. OTHER: No other significant finding. IMPRESSION: NEGATIVE STUDY OF THE LEFT HAND. NO RADIOGRAPHIC EVIDENCE OF ACUTE INJURY. TECHNICAL DOCUMENTATION: JOB ID: [id number] [employer]- All Rights Reserved Reading location - IP/workstation name: [email or web address]
[2017-11-29] MEDS ORDERED: LIDOCAINE 1% INJ-PF (10 MG/ML) 30 ML SDV INJ ONE (19:19)
--- NOTE | 2017-11-29 20:09 | ER Document Report ---
ED General - General Chief Complaint: Laceration Stated Complaint: HAND LACERATION Time Seen by Provider: 11/29/17 18:23 Mode of Arrival: Ambulatory Information source: Patient Notes: Patient presents with complaint of laceration to his left hand between the first and second digit in the webspace. Patient reports he was cleaning his vacuum hat cleaner with a new pocket knife when the pocket knife slipped and he stabbed himself in the webspace. Patient reports that his tetanus is up-to- date. Patient reports that he is right-hand dominant. TRAVEL OUTSIDE OF THE [place] IN LAST 30 DAYS: No - Related Data Allergies/Adverse Reactions: No Known Allergies Allergy (Verified 11/29/17 18:13) Past Medical History - General Information source: Patient - Social History Smoking Status: Current Every Day Smoker Chew tobacco use (# tins/day): No Frequency of alcohol use: Occasional Drug Abuse: None Family History: Reviewed & Not Pertinent Patient has suicidal ideation: No Patient has homicidal ideation: No Neurological Medical History: Reports: Hx Seizures Renal/ Medical History: Denies: Hx Peritoneal Dialysis Psychiatric Medical History: Reports: Hx Depression - Immunizations Hx Diphtheria, Pertussis, Tetanus Vaccination: Yes Review of Systems - Review of Systems Constitutional: No symptoms reported EENT: No symptoms reported Cardiovascular: No symptoms reported Respiratory: No symptoms reported Gastrointestinal: No symptoms reported Genitourinary: No symptoms reported Male Genitourinary: No symptoms reported Musculoskeletal: See HPI Skin: See HPI Hematologic/Lymphatic: No symptoms reported Neurological/Psychological: No symptoms reported Physical Exam - Notes Notes: PHYSICAL EXAMINATION: GENERAL: Well-appearing, well-nourished and in no acute distress. HEAD: Atraumatic, normocephalic. EYES: Pupils equal round extraocular movements intact, conjunctiva are normal. ENT: Nares patent NECK: Normal range of motion LUNGS: No respiratory distress Musculoskeletal: Limited range of motion to first through fourth digits on the left hand. Altered sensation to the first through third digits of the left hand. Patient is able to move all fingers and does have some sensation. Capillary refill is less than 3 seconds to all 5 digits. NEUROLOGICAL: Normal speech, normal gait. PSYCH: Normal mood, normal affect. SKIN: Warm, Dry, normal turgor, no rashes or lesions noted. 1 cm laceration noted to webspace between first and second digits on left hand. Course - Re-evaluation Re-evalutation: X-ray is negative for any foreign body or fractures. Laceration was anesthetized using 1% lidocaine, wound explored, no foreign body noted, wound irrigated with normal saline. Laceration repaired, see procedure note. I did consult Dr. Vargas, orthopedic on-call, as patient reports alteration in sensation to first through fourth digits as well as limited range of motion. This could be possibly due to tendon damage. Dr. Vargas recommends placing the patient in a splint and have him follow-up with his office Saturday morning, call for an appointment. Patient understands discharge instructions and denies any questions. Procedures - Laceration/Wound Repair Left hand Wound length (cm): 1 Wound's Depth, Shape: Into muscle Laceration pre-procedure: Sterile PPE donned Anesthetic type: 1% Lidocaine Volume Anesthetic (mLs): 2 Wound explored: Clean Irrigated w/ Saline (mLs): 10 Wound Repaired With: Sutures Suture Size/Type: 4:0, Nylon Number of Sutures: 2 Layer Closure?: No Discharge - Discharge Clinical Impression: Laceration Condition: Stable Disposition: HOME, SELF-CARE Additional Instructions: LACERATION CARE: Your laceration has been sutured to keep the skin edges aligned during healing. The time of suture removal depends on the nature and location of your cut. Please follow the care instructions the doctor has outlined for you and return for further care, according to the schedule you've been given. Keep the wound and dressing clean. Unless you were told otherwise, you may shower daily, blotting the wound dry with a clean, unused towel. At other times, If the dressing gets wet or blood soaked, remove it and blot the wound dry, then reapply a new dressing. Unless you were instructed otherwise, dressings should be changed at least daily. If any signs of infection occur (swelling, redness, drainage, increasing tenderness, red streaks, tender lumps in the armpit or groin above the laceration, or fever), see the doctor immediately. SOAP CLEANSING: Gently wash the wound daily using a mild soap (like Ivory, Phisoderm, Neutrogena). Use warm water, rubbing gently until all debris, ooze, and crusting have been washed from the wound. Allow to dry briefly (about 10 minutes) after cleaning. Repeat this cleansing at least three times a day for the first two days and then once or twice a day. ANTIBIOTIC OINTMENT PROTECTION: Your wounds are such that dressing them is not practical or optional. After cleansing, you should apply a thin coating of antibiotic ointment ( Bacitracin, not Neosporin) to the wounds at least three times daily. This lessens infection risk, and may decrease the amount of scarring. Use a q-tip or dull butter knife, not your finger, to apply this ointment. Any debris or ooze which builds up in the ointment should be gently rubbed off with a sterile gauze pad. Harder crusting may need to be gently scrubbed off with a clean wash cloth with soap and warm water, perhaps applying a warm, wet wash cloth to the wound for ten minutes first. Development of redness, severe itching, or blistering may mean allergy to the ointment. See the doctor. PROPHYLACTIC ANTIBIOTIC: The antibiotics which have been prescribed are designed to decrease the risk of infection. Only certain types of wounds benefit from this -- the typical cut, scrape, or burn DOES NOT require antibiotics. Of course, infection can still occur despite the use of prophylactic antibiotics. Your wound will heal with less chance of an infectious complication if you take the medication as directed. The most important dose is the FIRST dose, so don't delay filling the prescription! ORAL NARCOTIC MEDICATION: You have been given a prescription for pain control. This medication is a narcotic. It's best taken with food, as nausea can result if taken on an empty stomach. Don't operate machinery or drive within six hours of taking this medication. Do not combine this medicine with alcohol, or with any medication which can cause sedation (such as cold tablets or sleeping pills) unless you get permission from the physician. Narcotics tend to cause constipation. If possible, drink plenty of fluids and eat a diet high in fiber and fruits. FOLLOW-UP CARE: Please return in 4 days for an infection check and dressing change. Your sutures should be removed in 7 days. To facilitate a timely removal of your sutures, you may return to the Emergency Department at [facility]. You do not need to call for an appointment, but the best time to come in for suture removal is early in the morning. If you have been referred to another physician for follow-up care, call that physicians office for an appointment as you were instructed. If you experience a significant change in your laceration, or if you are concerned there may be an infection (swelling, redness, drainage, increasing tenderness, red streaks, tender lumps in the armpit or groin above the laceration, or fever) , return to the Emergency Department immediately re-evaluation. A sample is today for follow-up with orthopedics on Saturday, call Saturday for an appointment. Please keep the splint in place as much as possible until you are cleared by orthopedics. You may have a tendon injury. * Prescriptions: Cephalexin Monohydrate [Keflex 500 mg Capsule] 500 mg PO Q6H 5 Days #20 capsule Hydrocodone/Acetaminophen [Hydrocodon-Acetaminophen 5-325] 1 each PO Q4H PRN # 12 tablet PRN Reason: Referrals: KEYSHA VARGAS, [ACTIVE STAFF] - Follow up as needed
== END 2017-11-29 20:36 | disposition home or self-care (01) ==
LOC: ER 18:12
PROC: 0HQGXZZ Repair Left Hand Skin, External Approach (ICD-10-PCS; principal; 2017-11-29)
DX: S61.412A Laceration without foreign body of left hand, initial encounter (principal); W26.0XXA Contact with knife, initial encounter; F17.200 Nicotine dependence, unspecified, uncomplicated
CPT/HCPCS: 99283; 73130; 12001; J3490

== ENCOUNTER 2018-03-10 08:14 | Emergency (ER) | payer OTHER ==
--- NOTE | 2018-03-10 09:29 | RADIOLOGY REPORT (SQ) ---
EXAM DESCRIPTION: FOOT LEFT COMPLETE COMPLETED DATE/TIME: 03/10/2018 9:13 am REASON FOR STUDY: pallate of bricks dropped on foot COMPARISON: None. NUMBER OF VIEWS: Three views. TECHNIQUE: AP, lateral and oblique radiographic images acquired of the left foot. LIMITATIONS: None. FINDINGS: MINERALIZATION: Normal. BONES: No trauma at the base of the proximal phalanx, great toe. Moderate severe degenerative arango es at the first metatarsal-phalangeal joint. Degenerative changes at the anterior tibial talar joint . No acute fracture appear JOINTS: No effusions. SOFT TISSUES: No soft tissue swelling. No foreign body. OTHER: No other significant finding. IMPRESSION: 1. No acute osseous findings. Old remote trauma at the base of the proximal phalanx of the great toe. 2. Moderate severe degenerative changes at the first metatarsophalangeal joint. Mi ld degenerative changes at the anterior tibiotalar joint. TECHNICAL DOCUMENTATION: JOB ID: [id number] [employer]- All Rights Reserved Reading location - IP/workstation name: [email or web address]
[2018-03-10] MEDS ORDERED: HYDROCODONE/ACETAMINOPHEN 5-325 MG TABLET PO ONE (10:34)
--- NOTE | 2018-03-10 10:41 | ER Document Report ---
ED Extremity Problem, Lower - General Chief Complaint: Foot Injury Stated Complaint: LEFT FOOT INJURY Time Seen by Provider: 03/10/18 09:01 Mode of Arrival: Ambulatory Information source: Patient, Relative Notes: Patient is a 43-year-old male comes emergency room complaining of left foot pain. Primarily patient complaining of left big toe and arch pain. Patient states he was wearing sneakers at work yesterday and accidentally sat on a palate of break on top of his left foot. Patient complains of pain at the big toe with radiation down along the arch and into the webspace between the toe and the second digit. 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 He states he uses a foot balance himself on the rope while in harness. Patient denies any other medical problems and he currently smokes a pack of cigarettes a day. TRAVEL OUTSIDE OF THE [place] IN LAST 30 DAYS: No - Related Data Allergies/Adverse Reactions: No Known Allergies Allergy (Verified 03/10/18 08:15) Past Medical History - General Information source: Patient - Social History Smoking Status: Current Every Day Smoker Cigarette use (# per day): Yes - 1 pack a day Chew tobacco use (# tins/day): No Smoking Education Provided: Yes Frequency of alcohol use: Occasional Drug Abuse: None Family History: Reviewed & Not Pertinent Patient has suicidal ideation: No Patient has homicidal ideation: No Neurological Medical History: Reports: Hx Seizures Renal/ Medical History: Denies: Hx Peritoneal Dialysis Psychiatric Medical History: Reports: Hx Depression - Immunizations Hx Diphtheria, Pertussis, Tetanus Vaccination: Yes Review of Systems - Review of Systems Constitutional: No symptoms reported EENT: No symptoms reported Cardiovascular: No symptoms reported Respiratory: No symptoms reported Gastrointestinal: No symptoms reported Genitourinary: No symptoms reported Male Genitourinary: No symptoms reported Musculoskeletal: See HPI, Joint pain, Joint swelling Skin: See HPI, Other - No abrasions or other lesions noted Hematologic/Lymphatic: No symptoms reported Neurological/Psychological: No symptoms reported -: Yes All other systems reviewed and negative Physical Exam - Vital signs Vitals: Temp Pulse Resp BP Pulse Ox 97.9 F 105 H 18 122/77 94 03/10/18 08:19 03/10/18 08:19 03/10/18 08:19 03/10/18 08:19 03/10/18 08:19 Interpretation: Tachycardic - Notes Notes: PHYSICAL EXAMINATION: GENERAL: This is a well-nourished well-developed 43-year-old male who is in no apparent distress on physical examination. He is lying comfortably on the gurney with no apparent discomfort. HEAD: Atraumatic, normocephalic. EYES: Pupils equal round and reactive to light, extraocular movements intact, sclera anicteric, conjunctiva are normal. ENT: Nares patent, oropharynx clear without exudates. Moist mucous membranes. NECK: Normal range of motion, supple without lymphadenopathy LUNGS: Breath sounds clear to auscultation bilaterally and equal. No wheezes rales or rhonchi. HEART: Regular rate and rhythm without murmurs ABDOMEN: Soft, nontender, nondistended abdomen. No guarding, no rebound. No masses appreciated. Musculoskeletal: Normal range of motion, no pitting or edema. No cyanosis. Further examination of patient's area of complaint is his left great toe and down the inside of his arch as well as in between the webspace between the great toe and the second toe. Initial evaluation of the great toe shows no sign of abrasions or ecchymosis. There is no sign of swelling. There is mild amount of tenderness at the webspace between the first digit and the second toe. Flexion and extension of the toe causes no discomfort or pain. However when you forcefully pull the toe away from the heel and stretch the arch patient has significant discomfort. Likewise patient has some discomfort on resistance to extension of the toes. And again there is no sign of tendon damage. NEUROLOGI Normal speech, normal gait. Normal sensory, motor exams PSYCH: Normal mood, normal affect. SKIN: Warm, Dry, normal turgor, no rashes or lesions noted. Course - Re-evaluation Re-evalutation: 03/10/18 18:05 X-rays showed no acute fractures or dislocations. It showed an old fracture on the great toe but nothing new. At this point with patient's reaction to stress placed on the arch area apparently this is a plantar fasciitis presentation. Also probably a contusion to the great toe since they set the brakes down on it with tennis shoes on. Given that up putting patient into a postop shoe keep him out of work for 3 days. I explained to him not to stretch the area ice the area and use anti-inflammatories. Patient should be billed to go back to work by Saturday. - Vital Signs Vital signs: Temp Pulse Resp BP Pulse Ox 97.8 F 85 16 132/93 H 96 03/10/18 10:48 03/10/18 10:48 03/10/18 10:48 03/10/18 10:48 03/10/18 10:48 Procedures - Immobilization Left Foot Great toe Pre-Proc Neuro Vasc Exam: Normal Immobilizer type: Post-op shoe Performed by: PCT Post-Proc Neuro Vasc Exam: Normal, Unchanged from pre-exam Alignment checked and good: Yes Discharge - Discharge Clinical Impression: Plantar fasciitis Contusion Qualifiers: Encounter type: initial encounter Contusion area: foot Laterality: right Qualified Code(s): S90.31XA - Contusion of right foot, initial encounter Condition: Stable Disposition: HOME, SELF-CARE Instructions: Contusion ([facility]), Plantar Fasciitis or Heel Spur ([facility]) Additional Instructions: Home and rest today. Use the crutches for the next 2-3 days no nonweightbearing and get the foot or wrist. Times a day. I am placing you on a steroid taper for the inflammatory purpose of the plantar fasciitis which should correct the problem. Also he believes that she set a palate of bricks on the foot that you have super big bruise as well. So given it relief for the next couple days will be benefit to you. This way after the third day should be L return to work and be comfortable knowing that it is under control. You do have some arthritic changes as well as a history of an old traumatic fracture of the big toe those or probably reaggravated by the weight of the breaks. This also should be resolving over the next 2-3 days. 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 Prescriptions: Hydrocodone/Acetaminophen [Milton 5-325 mg Tablet] 1 tab PO Q6 #8 tablet Prednisone 10 mg PO ASDIR PRN 6 Days #1 tab.ds.pk PRN Reason: Forms: Smoking Cessation Education, Return to Work Referrals: EZEQUIEL OVALLES MD [ACTIVE STAFF] - Follow up as needed
[2018-03-10 10:51] VITALS: BP 132/93
== END 2018-03-10 10:49 | disposition home or self-care (01) ==
LOC: ER 08:14
DX: S90.31XA Contusion of right foot, initial encounter (principal); M72.2 Plantar fascial fibromatosis; X58.XXXA Exposure to other specified factors, initial encounter; Y99.0 Civilian activity done for income or pay; F17.210 Nicotine dependence, cigarettes, uncomplicated
CPT/HCPCS: 99283

== ENCOUNTER 2018-04-09 15:06 | Emergency (ER) | payer SELFPAY ==
--- NOTE | 2018-04-09 15:49 | ER Document Report ---
ED Medical Screen (RME) - General Chief Complaint: Head Injury Stated Complaint: FALL/BACK AND HEAD PAIN Time Seen by Provider: 04/09/18 15:48 TRAVEL OUTSIDE OF THE [place] IN LAST 30 DAYS: No - Related Data Allergies/Adverse Reactions: No Known Allergies Allergy (Verified 03/10/18 08:15) Past Medical History Neurological Medical History: Reports: Hx Seizures Renal/ Medical History: Denies: Hx Peritoneal Dialysis Psychiatric Medical History: Reports: Hx Depression - Immunizations Hx Diphtheria, Pertussis, Tetanus Vaccination: Yes Physical Exam - Vital signs Vitals: Temp Pulse Resp BP Pulse Ox 98.4 F 115 H 18 148/93 H 98 04/09/18 15:23 04/09/18 15:23 04/09/18 15:23 04/09/18 15:23 04/09/18 15:23 Course - Vital Signs Vital signs: Temp Pulse Resp BP Pulse Ox 98.4 F 115 H 18 148/93 H 98 04/09/18 15:23 04/09/18 15:23 04/09/18 15:23 04/09/18 15:23 04/09/18 15:23
--- NOTE | 2018-04-09 15:49 | RADIOLOGY REPORT (SQ) ---
EXAM DESCRIPTION: HIP RIGHT AP/LATERAL COMPLETED DATE/TIME: 04/09/2018 3:37 pm REASON FOR STUDY: Fall right hip pain COMPARISON: None. NUMBER OF VIEWS: Two views. TECHNIQUE: AP and frog-leg view of the right hip. LIMITATIONS: None. FINDINGS: MINERALIZATION: Normal. RIGHT HIP: No fracture or dislocation. No worrisome bone lesions. OPPOSITE HIP: No fracture or dislocation. No worrisome bone lesions. SOFT TISSUES: No findings. OTHER: No other significant finding. IMPRESSION: NEGATIVE STUDY OF THE RIGHT HIP. NO RADIOGRAPHIC EVIDENCE OF ACUTE INJURY. TECHNICAL DOCUMENTATION: JOB ID: [id number] [employer]- All Rights Reserved Reading location - IP/workstation name: [email or web address]
--- NOTE | 2018-04-09 15:51 | RADIOLOGY REPORT (SQ) ---
EXAM DESCRIPTION: CT HEAD WITHOUT COMPLETED DATE/TIME: 04/09/2018 3:28 pm REASON FOR STUDY: Fall COMPARISON: September 2017 TECHNIQUE: Axial images acquired through the brain without intravenous contrast. Images reviewed wi th bone, brain and subdural windows. Additional sagittal and coronal reconstructions were generated. Images stored on PACS. All CT scanners at this facility use dose modulation, iterative reconstruction, and/or weight based d osing when appropriate to reduce radiation dose to as low as reasonably achievable (ALARA). [facility]: Dose Right [facility]: CareDose [facility]: Dose Right [facility]: Teradose 4D [facility]: [employer] RADIATION DOSE: CT Rad equipment meets quality standard of care and radiation dose reduction techniq ues were employed. CTDIvol: 48.6 mGy. DLP: 905 mGy-cm. mGy. LIMITATIONS: None. FINDINGS: VENTRICLES: Normal size and contour. CEREBRUM: No masses. No hemorrhage. No midline shift. No evidence for acute infarction. Normal gra y/white matter differentiation. No areas of low density in the white matter. CEREBELLUM: No masses. No hemorrhage. No alteration of density. No evidence for acute infarction. EXTRAAXIAL SPACES: No fluid collections. No masses. ORBITS AND GLOBE: No intra- or extraconal masses. Normal contour of globe without masses. CALVARIUM: No fracture. PARANASAL SINUSES: No fluid or mucosal thickening. SOFT TISSUES: No mass or hematoma. OTHER: No other significant finding. IMPRESSION: NORMAL BRAIN CT WITHOUT CONTRAST. EVIDENCE OF ACUTE STROKE: NO. COMMENT: Quality ID # [id number]: Final reports with documentation of one or more dose reduction techniques (e.g., Automated exposure control, adjustment of the mA and/or kV according to patient size, use of iterative reconstruction technique) TECHNICAL DOCUMENTATION: JOB ID: [id number] [employer]- All Rights Reserved Reading location - IP/workstation name: [email or web address]
--- NOTE | 2018-04-09 15:54 | RADIOLOGY REPORT (SQ) ---
EXAM DESCRIPTION: CT CERVICAL SPINE WITHOUT COMPLETED DATE/TIME: 04/09/2018 3:28 pm REASON FOR STUDY: Fall COMPARISON: July 2017 TECHNIQUE: Axial images acquired through the cervical spine without intravenous contrast. Images re viewed with lung, soft tissue and bone windows. Reconstructed coronal and sagittal MPR images review ed. Images stored on PACS. All CT scanners at this facility use dose modulation, iterative reconstruction, and/or weight based d osing when appropriate to reduce radiation dose to as low as reasonably achievable (ALARA). [facility]: Dose Right [facility]: CareDose [facility]: Dose Right [facility]: Teradose 4D [facility]: [employer] RADIATION DOSE: CT Rad equipment meets quality standard of care and radiation dose reduction techniq ues were employed. CTDIvol: 21.2 mGy. DLP: 553 mGy-cm. mGy. LIMITATIONS: None. FINDINGS: ALIGNMENT: Anatomic. MINERALIZATION: Normal. VERTEBRAL BODIES: No fractures or dislocation. DISCS: No significant disc disease. FACETS, LATERAL MASSES, POSTERIOR ELEMENTS: No fractures. No dislocation. No acute findings. HARDWARE: None in the spine. VISUALIZED RIBS: No fractures. LUNG APICES AND SOFT TISSUES: No significant or acute findings. OTHER: No other significant finding. IMPRESSION: NO ACUTE OR SIGNIFICANT FINDINGS IN THE CERVICAL SPINE. TECHNICAL DOCUMENTATION: JOB ID: [id number] Quality ID # [id number]: Final reports with documentation of one or more dose reduction techniques (e.g., Au tomated exposure control, adjustment of the mA and/or kV according to patient size, use of iterative reconstruction technique) 2010 [employer]- All Rights Reserved Reading location - IP/workstation name: [email or web address]
[2018-04-09] MEDS ORDERED: OXYCODONE-ACETAMINOPHEN 5-325 MG TABLET PO ONE (15:56)
--- NOTE | 2018-04-09 17:06 | RADIOLOGY REPORT (SQ) ---
EXAM DESCRIPTION: CT PELVIS WITHOUT COMPLETED DATE/TIME: 04/09/2018 4:49 pm REASON FOR STUDY: fall from 12 feet, right iliac wing tenderness COMPARISON: None. TECHNIQUE: CT scan of the pelvis performed without intravenous or oral contrast. Images reviewed wi th soft tissue and bone windows. Reconstructed coronal and sagittal MPR images reviewed. All images stored on PACS. All CT scanners at this facility use dose modulation, iterative reconstruction, and/or weight based d osing when appropriate to reduce radiation dose to as low as reasonably achievable (ALARA). [facility]: Dose Right [facility]: CareDose [facility]: Dose Right [facility]: Teradose 4D [facility]: [employer] RADIATION DOSE: CT Rad equipment meets quality standard of care and radiation dose reduction techniq ues were employed. CTDIvol: 6.2 mGy. DLP: 215 mGy-cm. mGy. LIMITATIONS: None. FINDINGS: PELVIC BONES: No acute fracture. No worrisome bone lesions. VISUALIZED SPINE: No acute findings. Facet arthropathy. Right side pars defect at L4. HIP(S): No acute fracture or dislocation. No worrisome bone lesions. PELVIC SOFT TISSUES: No significant findings. EXTRAPELVIC SOFT TISSUES: No significant findings. OTHER: No other significant finding. IMPRESSION: NO ACUTE OR SIGNIFICANT FINDINGS. TECHNICAL DOCUMENTATION: JOB ID: [id number] Quality ID # [id number]: Final reports with documentation of one or more dose reduction techniques (e.g., Au tomated exposure control, adjustment of the mA and/or kV according to patient size, use of iterative reconstruction technique) 2010 [employer]- All Rights Reserved Reading location - IP/workstation name: [email or web address]
--- NOTE | 2018-04-09 17:13 | ER Document Report ---
ED General - General Chief Complaint: Head Injury Stated Complaint: FALL/BACK AND HEAD PAIN Time Seen by Provider: 04/09/18 15:48 Notes: Patient is a 43-year-old male that presents to the emergency department for chief complaint of right back pain and head injury after fall. Patient states that he was cash just prior to ED arrival, he slipped off the roof fell backwards, and as he slid on the roof he tried to grab the gutters but they ripped down to he fell approximately 12 feet, hit a metal railing on his back, and then hit his head on concrete steps. He denies loss of consciousness, currently denies having any neck pain. He was mildly confused immediately after this happened, and in triage, but has since improved his mental status. He denies having any headache at this time. He states he scraped his fingers, he reports being up-to-date with his tetanus. His main complaint is his right low back pain, which she describes as an 8 out of 10, aching sensation, worse with walking. He did not have any medication prior to ED arrival. Denies any numbness, tingling or weakness, denies any urinary retention or bowel incontinence. Past Medical History: Denies chronic medical conditions Past Surgical History: Denies major surgical history Social History: Admits to smoking cigarettes daily, denies current alcohol or illicit drug use. Family History: Reviewed and noncontributory for presenting illness Allergies: Reviewed, see documented allergy list. REVIEW OF SYSTEMS: Other than noted above, the 12 point review of systems was reviewed with the patient and were negative, all pertinent findings are included in the HPI. PHYSICAL EXAMINATION: Vital signs reviewed, nursing noted reviewed. GENERAL: Well-appearing, well-nourished and in no acute distress. HEAD: Atraumatic, normocephalic. EYES: Eyes appear normal, extraocular movements intact, sclera anicteric, conjunctiva are normal. PERRLA ENT: nares patent, oropharynx clear without exudates. Moist mucous membranes. NECK: Normal range of motion, supple without lymphadenopathy, no midline tenderness, patient is currently in a cervical collar. LUNGS: Breath sounds clear to auscultation bilaterally and equal. No wheezes rales or rhonchi. HEART: Regular rate and rhythm without murmurs ABDOMEN: Soft, nontender, normoactive bowel sounds. No rebound, guarding, or rigidity. No masses appreciated. Back: There is tenderness to palpation over the right iliac crest and wing, no gross deformity, or ecchymosis, no flank ecchymosis, there is no midline tenderness to the thoracic or lumbar spine. EXTREMITIES: Nontender, good range of motion, no pitting or edema. Good range of motion of the hips bilaterally, although there is pain with resisted hip flexion, and internal and external rotation. The rest of the patient's extremity exam is grossly unremarkable, sensation intact distally. Reflexes are normal. NEUROLOGICAL: No focal neurological deficits. Moves all extremities spontaneously Motor and sensory grossly intact on exam. PSYCH: Normal mood, normal affect. SKIN: Warm, Dry, normal turgor, no rashes or lesions noted on exposed skin TRAVEL OUTSIDE OF THE [place] IN LAST 30 DAYS: No - Related Data Allergies/Adverse Reactions: No Known Allergies Allergy (Verified 03/10/18 08:15) Past Medical History - Social History Smoking Status: Current Every Day Smoker Chew tobacco use (# tins/day): No Frequency of alcohol use: Heavy Drug Abuse: None Family History: Reviewed & Not Pertinent Patient has suicidal ideation: No Patient has homicidal ideation: No Neurological Medical History: Reports: Hx Seizures Renal/ Medical History: Denies: Hx Peritoneal Dialysis Psychiatric Medical History: Reports: Hx Depression - Immunizations Hx Diphtheria, Pertussis, Tetanus Vaccination: Yes Physical Exam - Vital signs Vitals: Temp Pulse Resp BP Pulse Ox 98.4 F 115 H 18 148/93 H 98 04/09/18 15:23 04/09/18 15:23 04/09/18 15:23 04/09/18 15:23 04/09/18 15:23 Course - Re-evaluation Re-evalutation: Patient seen and examined vital signs reviewed. Laboratory data and imaging were ordered as appropriate for the patient's presenting symptoms and complaint, with consideration of any critical or life threatening conditions that may be associated with their obtained history and exam as noted above. Patient was treated with p.o. Percocet for his pain Results were reviewed when available and demonstrated negative CT imaging of the head and cervical spine, patient did have x-rays of the pelvis and right hip , which were interpreted as negative, however the patient was having significant pain, therefore I did order CT of the pelvis to evaluate for possible occult pelvic fracture, this was reviewed and negative as well. The patient was re-evaluated and was improved and ambulating in the emergency department, without difficulty. He was advised to be off work, for light duty, to follow-up with a primary care, and given a prescription for Percocet to take for his pain. He is advised to return if he had any hematuria or any worsening of his symptoms, where the pain was out of control or if he developed numbness, tingling or weakness. Evaluation was most consistent with closed head injury, fall, back injury Results were discussed with the patient at this point, after careful consideration I feel that that patient can be discharged from the emergency department, the patient was educated treatments and reasons to return to the emergency department based on their presumed diagnosis as noted above, they were advised to followup with a primary care physician in 2-3 days. Patient was agreeable to plan of care. *Note is created using voice recognition software and may contain spelling, syntax or grammatical errors. Cervical Spine CT 04/09/18 00:00 IMPRESSION: NO ACUTE OR SIGNIFICANT FINDINGS IN THE CERVICAL SPINE. Head CT 04/09/18 00:00 IMPRESSION: NORMAL BRAIN CT WITHOUT CONTRAST. EVIDENCE OF ACUTE STROKE: NO. Hip/Pelvis X-Ray 04/09/18 00:00 IMPRESSION: NEGATIVE STUDY OF THE RIGHT HIP. NO RADIOGRAPHIC EVIDENCE OF ACUTE INJURY. Pelvis CT 04/09/18 15:58 IMPRESSION: NO ACUTE OR SIGNIFICANT FINDINGS. - Vital Signs Vital signs: Temp Pulse Resp BP Pulse Ox 97.9 F 92 18 135/92 H 96 04/09/18 17:21 04/09/18 17:21 04/09/18 17:21 04/09/18 17:21 04/09/18 17:21 Discharge - Discharge Clinical Impression: Closed head injury Qualifiers: Encounter type: initial encounter Qualified Code(s): S09.90XA - Unspecified injury of head, initial encounter Fall Qualifiers: Encounter type: initial encounter Qualified Code(s): W19.XXXA - Unspecified fall, initial encounter Back pain Qualifiers: Back pain location: low back pain Chronicity: acute Back pain laterality: right Sciatica presence: without sciatica Qualified Code(s): M54.5 - Low back pain Condition: Stable Disposition: HOME, SELF-CARE Instructions: Low Back Pain ([facility]) Additional Instructions: If your symptoms worsen, if you develop bowel or bladder incontinence, or if you have any numbness, tingling or weakness in your legs, please return to the emergency department immediately. Prescriptions: Oxycodone HCl/Acetaminophen [Percocet 5-325 mg Tablet] 1 tab PO Q8H PRN #15 tab PRN Reason: back pain Forms: Return to Work Referrals: ANSLEY ROSARIO MD [ACTIVE STAFF] - Follow up in 3-5 days (or your primary care. )
[2018-04-09 17:22] VITALS: BP 135/92
== END 2018-04-09 17:22 | disposition home or self-care (01) ==
LOC: ER 15:06
DX: S09.90XA Unspecified injury of head, initial encounter (principal); M54.5 Low back pain; W13.2XXA Fall from, out of or through roof, initial encounter; Y93.H3 Activity, building and construction; Y99.0 Civilian activity done for income or pay; F17.210 Nicotine dependence, cigarettes, uncomplicated
CPT/HCPCS: 99284; 73502; 70450; 72125; 72192; L0120

== ENCOUNTER 2018-04-15 11:31 | Emergency (ER) | payer OTHER ==
[2018-04-15 11:42] VITALS: BP 107/64
--- NOTE | 2018-04-15 12:03 | ER Document Report ---
ED General - General Chief Complaint: Back Pain Stated Complaint: FALL/BACK PAIN Time Seen by Provider: 04/15/18 11:50 Notes: Patient is a 43-year-old male that presents to the emergency department for chief complaint of back pain after injury. Patient states that he is going back to the ER, mainly to get a work note so he can go back to work. He fell last week, after rooftop, and injured his low back, he had imaging at that time , that was negative for any acute fractures or injuries. His back pain has been improving, initially was given Percocet, and been taking NSAIDs and using warm compresses and stretches, his back pain has been improving. At this point he wishes to go back to work, he denies any numbness, tingling or weakness in his extremities, denies having any bowel or bladder incontinence or urinary retention. He currently rates his pain as a 2 out of 10, describes as an ache in his right low back. No other complaints at this time. Past Medical History: Depression Past Surgical History: Denies major surgical history Social History: Admits to smoking cigarettes daily. Family History: Reviewed and noncontributory for presenting illness Allergies: Reviewed, see documented allergy list. REVIEW OF SYSTEMS: Other than noted above, the 12 point review of systems was reviewed with the patient and were negative, all pertinent findings are included in the HPI. PHYSICAL EXAMINATION: Vital signs reviewed, nursing noted reviewed. GENERAL: Well-appearing, well-nourished and in no acute distress. HEAD: Atraumatic, normocephalic. EYES: Eyes appear normal, extraocular movements intact, sclera anicteric, conjunctiva are normal. ENT: nares patent, oropharynx clear without exudates. Moist mucous membranes. NECK: Normal range of motion, supple without lymphadenopathy LUNGS: Breath sounds clear to auscultation bilaterally and equal. No wheezes rales or rhonchi. HEART: Regular rate and rhythm without murmurs ABDOMEN: Soft, nontender, normoactive bowel sounds. No rebound, guarding, or rigidity. No masses appreciated. EXTREMITIES: Nontender, good range of motion, no pitting or edema. Back: Mild tenderness to palpation over the right lateral low back, over the quadratus lumborus muscle, no ecchymosis, or deformity, no tenderness over the ribs, no midline tenderness to the thoracic or lumbar spine. NEUROLOGICAL: No focal neurological deficits. Moves all extremities spontaneously Motor and sensory grossly intact on exam. Reflexes 2/4 in the patellar and Achilles tendon reflexes bilaterally. Patient had normal gait. PSYCH: Normal mood, normal affect. SKIN: Warm, Dry, normal turgor, no rashes or lesions noted on exposed skin TRAVEL OUTSIDE OF THE [place] IN LAST 30 DAYS: No - Related Data Allergies/Adverse Reactions: No Known Allergies Allergy (Verified 03/10/18 08:15) Past Medical History - Social History Smoking Status: Current Every Day Smoker Family History: Reviewed & Not Pertinent Patient has suicidal ideation: No Patient has homicidal ideation: No Neurological Medical History: Reports: Hx Seizures Renal/ Medical History: Denies: Hx Peritoneal Dialysis Psychiatric Medical History: Reports: Hx Depression - Immunizations Hx Diphtheria, Pertussis, Tetanus Vaccination: Yes Physical Exam - Vital signs Vitals: Temp Pulse Resp BP Pulse Ox 98.3 F 86 15 107/64 94 04/15/18 11:41 04/15/18 11:41 04/15/18 11:41 04/15/18 11:41 04/15/18 11:41 Course - Re-evaluation Re-evalutation: Patient seen and examined vital signs reviewed. Patient was evaluated and treated as appropriate for the patient's presenting symptoms and complaint, with consideration of any critical or life threatening conditions that may be associated with their obtained history and exam as noted above. The patient was re-evaluated and was stable, discussed with him that he could return to light duty, he is given a work note stating that he go back to work tomorrow on 04/16/2018, reviewed prior charts, patient did not have any fractures, or acute bony injuries or internal injuries based on his imaging that he had on his prior visit. Evaluation was most consistent with low back pain, from prior injury, recommended continuing warm compresses, and NSAIDs, patient elected to take over -the-counter NSAIDs, given instructions on how to take these. Plan of care was discussed with the patient at this point, after careful consideration I feel that that patient can be discharged from the emergency department, the patient was educated treatments and reasons to return to the emergency department based on their presumed diagnosis as noted above, they were advised to followup with a primary care physician in 2-3 days. Patient was agreeable to plan of care. *Note is created using voice recognition software and may contain spelling, syntax or grammatical errors. - Vital Signs Vital signs: Temp Pulse Resp BP Pulse Ox 98.3 F 86 15 107/64 94 04/15/18 11:41 04/15/18 11:41 04/15/18 11:41 04/15/18 11:41 04/15/18 11:41 Discharge - Discharge Clinical Impression: Back pain Qualifiers: Back pain location: low back pain Chronicity: acute Back pain laterality: right Sciatica presence: without sciatica Qualified Code(s): M54.5 - Low back pain Condition: Stable Disposition: HOME, SELF-CARE Instructions: Ice Packs ([facility]), Low Back Pain ([facility]), Warm Packs ([facility]) Additional Instructions: Please continue taking Motrin, or naproxen, you can take naproxen every 12 hours or Motrin every 8 hours for pain, continue to use warm compresses for 20 minutes on 20 minutes off to help with your low back pain. Forms: Return to Work Referrals: ZIGGY NARAYANAN DO [NO LOCAL MD] - Follow up in 3-5 days
== END 2018-04-15 12:21 | disposition home or self-care (01) ==
LOC: ER 11:31
DX: M54.5 Low back pain (principal); F17.210 Nicotine dependence, cigarettes, uncomplicated
CPT/HCPCS: 99283